=== PATIENT | male | born 1970 | race Caucasian/White ===

== ENCOUNTER 2022-06-25 17:15 | Inpatient (IN) | payer BC ==
[2022-06-25 17:44] VITALS: BMI 29.5
[2022-06-25] MEDS ORDERED: ACETAMINOPHEN 325 MG TABLET (FP) PO PRN (18:59)
[2022-06-25] MEDS ORDERED: MAGNESIUM HYDROX 2400MG/30ML ORAL SUSPENSION 30 ML CUP PO PRN (18:59)
[2022-06-25] MEDS ORDERED: DICYCLOMINE HCL 10 MG CAPSULE PO PRN (18:59)
[2022-06-25] MEDS ORDERED: BISMUTH SUBSALICYLATE 524 MG/30 ML PO PRN (18:59)
[2022-06-25] MEDS ORDERED: LOPERAMIDE HCL 2 MG CAPSULE PO PRN (18:59)
[2022-06-25] MEDS ORDERED: MAG HYDROX/AL HYDROX/SIMETH 30 ML UNIT-DOSE CUP PO PRN (18:59)
[2022-06-25] MEDS ORDERED: POLYETHYLENE GLYCOL (HEALTHYLAX) 3350 17 GM PACKET PO PRN (18:59)
[2022-06-25] MEDS ORDERED: BENZOCAINE/MENTHOL (CHLORASEPTIC ) LOZENGE MM PRN (18:59)
[2022-06-25] MEDS ORDERED: guaiFENesin 200 MG/10 ML 10 ML UNIT-DOSE CUPS PO PRN (18:59)
[2022-06-25] MEDS ORDERED: ONDANSETRON *ODT* 4 MG TABLET SL PRN (18:59)
[2022-06-25] MEDS ORDERED: P-EPHED 60MG/TRIPROLIDI 2.5MG TABLET PO PRN (18:59)
[2022-06-25] MEDS: THIAMINE HCL 100 MG TABLET (FP) PO SCH (22:21)
[2022-06-25] MEDS: MELATONIN 5 MG TABLETS PO SCH (22:21)
[2022-06-25] MEDS: chlordiazePOXIDE HCL 25 MG CAPSULE PO PRN (22:22)
[2022-06-25] MEDS: METHOCARBAMOL 500 MG TABLET PO PRN (22:22)
[2022-06-26] MEDS: chlordiazePOXIDE HCL 25 MG CAPSULE PO SCH ×4 (05:37→22:17)
[2022-06-26] MEDS: ACETAMINOPHEN 325 MG TABLET (FP) PO PRN (05:38)
[2022-06-26] MEDS: PRENATAL VITAMINS W/ FOLIC ACID TABLET (FP) PO SCH (10:03)
[2022-06-26] MEDS: METHOCARBAMOL 500 MG TABLET PO PRN ×2 (10:05→17:27)
[2022-06-26] MEDS: IBUPROFEN 400 MG TABLET (FP) PO PRN ×2 (10:06→17:28)
[2022-06-26 10:57] LABS: HEMOGLOBIN 14.1 GM/dL (11.7-16.9); MCH 30.7 pg (25.7-33.7); MCHC 32.8 g/dl (32.0-35.9); MEAN CELL VOLUME 93.6 fl (80-96); MEAN PLT VOLUME 7.9 fl (7.5-11.1); PLATELET COUNT 257 10^3/uL (134-434); RBC 4.59 M/mm3 (4.00-5.60); RDW 15.2 % (11.9-15.9); WHITE BLOOD COUNT 5.4 K/mm3 (4.0-10.0)
[2022-06-26 11:06] LABS: ALBUMIN 4.1 g/dl (3.4-5.0); CALCIUM 9.3 mg/dL (8.5-10.1)
[2022-06-26 11:07] LABS: BLOOD UREA NITROGEN 14.5 mg/dL (7-18)
[2022-06-26 11:09] LABS: CREATININE 0.9 mg/dL (0.55-1.3); TOT PROT 7.4 g/dl (6.4-8.2)
[2022-06-26 11:10] LABS: BILIRUBIN,TOTAL 0.8 mg/dL (0.2-1)
[2022-06-26] MEDS: chlordiazePOXIDE HCL 25 MG CAPSULE PO PRN (13:06)
[2022-06-26] MEDS: hydrOXYzine PAMOATE 25 MG CAPSULE (FP) PO PRN (13:08)
[2022-06-26] MEDS: MELATONIN 5 MG TABLETS PO SCH (22:17)
[2022-06-26] MEDS: traZODone HCL 100 MG TABLET (FP) PO SCH (22:17)
[2022-06-26] MEDS: TAMSULOSIN HCL 0.4 MG CAP PO SCH (22:17)
[2022-06-26] MEDS: THIAMINE HCL 100 MG TABLET (FP) PO SCH (22:17)
[2022-06-27] MEDS ORDERED: chlordiazePOXIDE HCL 10 MG CAPSULE PO PRN
[2022-06-27] MEDS: METHOCARBAMOL 500 MG TABLET PO PRN ×2 (05:46→17:28)
[2022-06-27] MEDS: chlordiazePOXIDE HCL 25 MG CAPSULE PO SCH ×4 (05:46→22:00)
[2022-06-27] MEDS: IBUPROFEN 400 MG TABLET (FP) PO PRN (05:47)
[2022-06-27] MEDS: hydrOXYzine PAMOATE 25 MG CAPSULE (FP) PO PRN (08:43)
[2022-06-27] MEDS ORDERED: ESCITALOPRAM OXALATE 10 MG TABLET PO SCH (10:00)
[2022-06-27] MEDS: PRENATAL VITAMINS W/ FOLIC ACID TABLET (FP) PO SCH (10:07)
[2022-06-27] MEDS: ACETAMINOPHEN 325 MG TABLET (FP) PO PRN (10:09)
[2022-06-27] MEDS: ESCITALOPRAM OXALATE 10 MG TABLET PO SCH (10:10)
[2022-06-27] MEDS ORDERED: LIDOCAINE 5% TOPICAL PATCH TP ONE (11:00)
[2022-06-27] MEDS: ARIPiprazole 5 MG TABLET PO SCH (11:46)
[2022-06-27] MEDS: IBUPROFEN 600 MG TABLET (FP) PO PRN (17:27)
[2022-06-27] MEDS: TAMSULOSIN HCL 0.4 MG CAP PO SCH (21:41)
[2022-06-27] MEDS: LIDOCAINE PATCH REMOVAL MC SCH (21:42)
[2022-06-27] MEDS: THIAMINE HCL 100 MG TABLET (FP) PO SCH (21:42)
[2022-06-27] MEDS: traZODone HCL 100 MG TABLET (FP) PO SCH (21:42)
[2022-06-27] MEDS: MELATONIN 5 MG TABLETS PO SCH (21:59)
[2022-06-28] MEDS: IBUPROFEN 600 MG TABLET (FP) PO PRN (05:45)
[2022-06-28] MEDS: chlordiazePOXIDE HCL 10 MG CAPSULE PO SCH ×4 (05:45→22:02)
[2022-06-28] MEDS: METHOCARBAMOL 500 MG TABLET PO PRN ×2 (05:46→17:53)
[2022-06-28] MEDS ORDERED: LIDOCAINE 5% TOPICAL PATCH TP SCH (10:00)
[2022-06-28] MEDS: PRENATAL VITAMINS W/ FOLIC ACID TABLET (FP) PO SCH (10:14)
[2022-06-28] MEDS: ESCITALOPRAM OXALATE 10 MG TABLET PO SCH (10:14)
[2022-06-28] MEDS: ARIPiprazole 5 MG TABLET PO SCH (10:14)
[2022-06-28] MEDS: hydrOXYzine PAMOATE 25 MG CAPSULE (FP) PO PRN ×2 (10:15→17:52)
[2022-06-28 13:31] VITALS: RESP 18
[2022-06-28] MEDS: ACETAMINOPHEN 325 MG TABLET (FP) PO PRN (16:37)
[2022-06-28] MEDS ORDERED: chlordiazePOXIDE HCL 10 MG CAPSULE PO PRN (20:19)
[2022-06-28] MEDS: traZODone HCL 100 MG TABLET (FP) PO SCH (22:01)
[2022-06-28] MEDS: MELATONIN 5 MG TABLETS PO SCH (22:01)
[2022-06-28] MEDS: THIAMINE HCL 100 MG TABLET (FP) PO SCH (22:01)
[2022-06-28] MEDS: TAMSULOSIN HCL 0.4 MG CAP PO SCH (22:01)
[2022-06-28] MEDS: LIDOCAINE PATCH REMOVAL MC SCH (22:02)
[2022-06-29] MEDS ORDERED: chlordiazePOXIDE HCL 10 MG CAPSULE PO SCH (05:00)
[2022-06-29] MEDS: METHOCARBAMOL 500 MG TABLET PO PRN (05:09)
[2022-06-29] MEDS: IBUPROFEN 400 MG TABLET (FP) PO PRN (05:10)
[2022-06-29 06:13] VITALS: BP 106/75; PULSE 85; TEMP 98
[2022-06-29] MEDS: ACETAMINOPHEN 325 MG TABLET (FP) PO PRN (08:41)
[2022-06-30] MEDS ORDERED: chlordiazePOXIDE HCL 10 MG CAPSULE PO ONE (05:00)
== END 2022-06-29 08:45 | disposition home or self-care (01) | DRG 897 ==
LOC: YASAS 17:15 → Y3N 18:59
PROVIDERS: ADMIT Allergy & Immunology; ATTEND Surgery
PROC: HZ2ZZZZ Detoxification Services for Substance Abuse Treatment (ICD-10-PCS; principal; 2022-06-25)
DX: F10.230 Alcohol dependence with withdrawal, uncomplicated (principal); F12.10 Cannabis abuse, uncomplicated; F32.A Depression, unspecified; F41.9 Anxiety disorder, unspecified; G47.00 Insomnia, unspecified; M54.50 Low back pain, unspecified; M54.10 Radiculopathy, site unspecified; G89.29 Other chronic pain; N40.0 Benign prostatic hyperplasia without lower urinary tract symptoms; R74.8 Abnormal levels of other serum enzymes; Z86.59 Personal history of other mental and behavioral disorders; Z28.310 Unvaccinated for COVID-19; Z28.9 Immunization not carried out for unspecified reason
CPT/HCPCS: 36415; 80053; 85027; 86780; 93005; 93010; C9803-CS; U0003; U0005